=== PATIENT | female | born 1990 | race Caucasian/White ===

== ENCOUNTER 2016-06-30 09:43 | Emergency (ER) | payer BC ==
[2016-06-30 09:57] VITALS: BP 129/76; PULSE 84; TEMP 98.2; BMI 29.4
--- NOTE | 2016-06-30 11:19 | PDOC ---
History of Present Illness - General Chief Complaint: Ear Problem Stated Complaint: DIZZINESS, FATIGUE, NAUSEA Time Seen by Provider: 06/30/16 11:18 History Source: Patient Exam Limitations: No Limitations - History of Present Illness Initial Comments: CHIEF COMPLAINT: 26 y/o afebrile female with no significant PMH c/o feeling tired for the past few days. HISTORY OF PRESENT ILLNESS: She also admits to some increased pressure in her right ear and dizziness. She describes the dizziness as "just feeling like I don't have enough energy". The patient does admit her LMP was 05/21/16 and she has not taken a test. She denies f/c, n/v/d, cough, runny nose, CP, SOB, abd pain, back pain. Vital signs on arrival are within normal limits. REVIEW OF SYSTEMS: GENERAL/CONSTITUTIONAL: No fever/chills. No weakness. No weight change. + fatigue HEAD, EYES, EARS, NOSE AND THROAT: No change in vision. +right ear pressure. No sore throat. CARDIOVASCULAR: No chest pain or shortness of breath. RESPIRATORY: No cough, wheezing, or hemoptysis. GASTROINTESTINAL: No abd pain, nausea, vomiting, diarrhea. GENITOURINARY: No dysuria, frequency, or change in urination. MUSCULOSKELETAL: No joint or muscle swelling or pain. No neck or back pain. SKIN: No rash or easy bruising. NEUROLOGIC: No headache, vertigo, loss of consciousness, or loss of sensation. PHYSICAL EXAM: GENERAL: The patient is awake, alert, and fully oriented, in no acute distress. She is very well appearing, in NAD or obvious discomfort. HEAD: Normal with no signs of trauma. ENT: Pupils equal, round and reactive to light, extraocular movements intact, sclera anicteric, conjunctiva clear. b/l TMs are clear with good light reflex. B/l ear canals are normal with no erythema or edema. LUNGS: Clear to auscultation bilaterally. Normal excursion. No respiratory distress or use of accessory muscles. CV: RRR, S1/S2, no MRG. Cap refill < 2 sec. ABDOMEN: Soft, non-distended, non-tender even to deep palpation, no hepatomegaly or splenomegaly, no masses. EXTREMITIES: Normal range of motion, no edema. NEUROLOGICAL: Normal speech, normal gait. CN II-XII grossly intact. PSYCH: Normal mood, normal affect. SKIN: Warm, dry, normal turgor, no rashes or lesions noted. Past History - Past Medical History Allergies/Adverse Reactions: Allergies Allergy/AdvReac Type Severity Reaction Status Date / Time No Known Allergies Allergy Verified 06/30/16 09:57 Home Medications: Ambulatory Orders NK [No Known Home Medication] 06/30/16 Other medical history: PT DENIES MEDICAL HX - Psycho/Social/Smoking Cessation Hx Suicidal Ideation: No Smoking History: Never smoked Hx Alcohol Use: No Drug/Substance Use Hx: No *Physical Exam - Vital Signs Last Vital Signs Temp Pulse Resp BP Pulse Ox 98.2 F 84 16 129/76 98 06/30/16 09:54 06/30/16 09:54 06/30/16 09:54 06/30/16 09:54 06/30/16 09:54 Medical Decision Making - Medical Decision Making A/P: 26 y/o afebrile female with normal physical exam. Possible common cold or . Plan is as follows: 1. hcg hcg - negative Will discharge back to work with supportive care instructions. Suggested she return to the ER with any worsening or concerning symptoms. The patient verbalizes understanding of all instructions, has no further questions and is awaiting discharge. *DC/Admit/Observation/Transfer Diagnosis at time of Disposition: Earache on right Fatigue Qualifiers: Fatigue type: unspecified Qualified Code(s): R53.83 - Other fatigue - Discharge Dispostion Disposition: HOME Condition at time of disposition: Good - Referrals Referrals: Faustino Arguello [Primary Care Provider] - Call tomorrow - Patient Instructions Printed Discharge Instructions: DI for Ear Pain-Adult Additional Instructions: Discharge Instructions: -Take Motrin for pain if needed -Drink at least 64oz of water daily -Follow up with Dr. Arguello if symptoms continue -Return to the ER with any worsening or concerning symptoms
== END 2016-06-30 12:42 | disposition home or self-care (01) ==
LOC: JERFT 09:43
DX: H92.01 Otalgia, right ear (principal)
CPT/HCPCS: 84703; 99281-25

== ENCOUNTER 2018-03-28 16:41 | Emergency (ER) | payer BC ==
[2018-03-28 16:46] VITALS: BP 125/82; PULSE 92; TEMP 98.4; BMI 28.3
--- NOTE | 2018-03-28 16:47 | PDOC ---
History of Present Illness - General History Source: Patient Exam Limitations: No Limitations - History of Present Illness Initial Comments: 03/28/18 16:59 The patient is a 28 year old female, with no significant past medical history, who presents to the emergency department with, right sided facial numbness and right sided headaches. Patient notes her pain and numbness to be intermittent in nature. She describes her numbness as pins and needles and her headache as right sided radiating to her bilateral neck. She also endorses while driving to the ER she began to have right hip pain and right hand shaking, prompting her visit to the ER. She denies any recent change in strength or sensation to the extremities or change in speech. She denies a history of migraines. She denies recent fevers, chills, or dizziness. She denies recent nausea, vomit, diarrhea or constipation. She denies recent dysuria, frequency, urgency or hematuria. She denies recent chest pain or shortness of breath. Allergies: NKDA Past surgical history: None reported. Social history: Nonsmoker. Denies EtOH use and recreational drug use. <Lulu Elmore - Last Filed: 03/28/18 17:53> <Cecilia Cazares - Last Filed: 03/28/18 18:03> - General Chief Complaint: Pain Stated Complaint: RT FACE NUMB Time Seen by Provider: 03/28/18 16:46 Past History <Lulu Elmore - Last Filed: 03/28/18 17:53> - Past Medical History COPD: No - Suicide/Smoking/Psychosocial Hx Smoking History: Never smoked Have you smoked in the past 12 months: No Information on smoking cessation initiated: No Hx Alcohol Use: No Drug/Substance Use Hx: No <Cecilia Cazares - Last Filed: 03/28/18 18:03> - Past Medical History Allergies/Adverse Reactions: Allergies Allergy/AdvReac Type Severity Reaction Status Date / Time No Known Allergies Allergy Verified 03/28/18 16:42 Home Medications: Ambulatory Orders NK [No Known Home Medication] 06/30/16 Review of Systems - Review of Systems Able to Perform ROS?: Yes Comments:: 03/28/18 16:59 GENERAL/CONSTITUTIONAL: No fever or chills. No weakness. HEAD, EYES, EARS, NOSE AND THROAT: No change in vision. No ear pain or discharge. No sore throat. CARDIOVASCULAR: No chest pain or shortness of breath. RESPIRATORY: No cough, wheezing, or hemoptysis. GASTROINTESTINAL: No nausea, vomiting, diarrhea or constipation. GENITOURINARY: No dysuria, frequency, or change in urination. MUSCULOSKELETAL: No joint or muscle swelling or pain. No neck or back pain. SKIN: No rash +NEUROLOGIC: Headache. Right sided facial numbness. No vertigo or loss of consciousness. ENDOCRINE: No increased thirst. No abnormal weight change. HEMATOLOGIC/LYMPHATIC: No anemia, easy bleeding, or history of blood clots. ALLERGIC/IMMUNOLOGIC: No hives or skin allergy. All Other Systems: Reviewed and Negative <Lulu Elmore - Last Filed: 03/28/18 17:53> *Physical Exam - Vital Signs Last Vital Signs Temp Pulse Resp BP Pulse Ox 98.4 F 92 H 20 125/82 99 03/28/18 16:41 03/28/18 16:41 03/28/18 16:41 03/28/18 16:41 03/28/18 16:41 <Lulu Elmore - Last Filed: 03/28/18 17:53> - Vital Signs Last Vital Signs Temp Pulse Resp BP Pulse Ox 98.4 F 92 H 20 125/82 99 03/28/18 16:41 03/28/18 16:41 03/28/18 16:41 03/28/18 16:41 03/28/18 16:41 - Physical Exam Comments: GENERAL: Awake, alert, and fully oriented, in no acute distress HEAD: No signs of trauma EYES: PERRLA, EOMI, sclera anicteric, conjunctiva clear ENT: Auricles normal inspection, hearing grossly normal, nares patent, oropharynx clear without exudates. Moist mucosa NECK: Normal ROM, supple, no lymphadenopathy, JVD, or masses LUNGS: Breath sounds equal, clear to auscultation bilaterally. No wheezes, and no crackles HEART: Regular rate and rhythm, normal S1 and S2, no murmurs, rubs or gallops ABDOMEN: Soft, nontender, normoactive bowel sounds. No guarding, no rebound. No masses EXTREMITIES: Normal range of motion, no edema. No clubbing or cyanosis. No cords, erythema, or tenderness NEUROLOGICAL: Cranial nerves II through XII grossly intact. Normal speech, normal gait. Dec sensation to R face in V2 and V3 distribution. Motor and sensation otherwise intact. SKIN: Warm, Dry, normal turgor, no rashes or lesions noted. <Cecilia Cazares - Last Filed: 03/28/18 18:03> Moderate Sedation - Procedure Monitoring Vital Signs: Procedure Monitoring Vital Signs Temperature 98.4 F 03/28/18 16:41 Pulse Rate 92 H 03/28/18 16:41 Respiratory Rate 20 03/28/18 16:41 Blood Pressure 125/82 03/28/18 16:41 O2 Sat by Pulse Oximetry (%) 99 03/28/18 16:41 <Lulu Elmore - Last Filed: 03/28/18 17:53> - Procedure Monitoring Vital Signs: Procedure Monitoring Vital Signs Temperature 98.4 F 03/28/18 16:41 Pulse Rate 92 H 03/28/18 16:41 Respiratory Rate 20 03/28/18 16:41 Blood Pressure 125/82 03/28/18 16:41 O2 Sat by Pulse Oximetry (%) 99 03/28/18 16:41 <Cecilia Cazares - Last Filed: 03/28/18 18:03> ED Treatment Course - RADIOLOGY Radiograph Interpretation: 03/28/18 17:53 EXAM: CT head without contrast REASON FOR EXAM: Right facial numbness COMPARISON: None. FINDINGS: There is cerebral atrophy, unusual for patient's age. Mild chronic microvascular ischemic changes are noted, unusual for patient's age. No acute intracranial hemorrhage or acute infarction. The visualized aspect of the paranasal sinuses and mastoid air cells are remarkable for mild bilateral ethmoid and sphenoid chronic sinus changes. No acute fracture. One or more of the following dose reduction techniques were used: automated exposure control, adjustment of the mA and/or kV according to patient size, use of iterative reconstructive technique. Read by: Burke Tinajero MD <Lulu Elmore - Last Filed: 03/28/18 17:53> Medical Decision Making - Medical Decision Making 03/28/18 17:25 Symptoms may be due to migraine or may be due to MS or mass. Will obtain CTH to further evaluate. If wnl, will DC with neuro f/u. 03/28/18 18:02 CTH shows cortical atrophy which is unusual for age. D/w patient, as this would not correspond to such a specific symptom as R facial numbness. Recommended neuro f/u, call tomorrow to make appt. <Cecilia Cazares - Last Filed: 03/28/18 18:03> *DC/Admit/Observation/Transfer - Attestations Scribe Attestion: 03/28/18 17:00 Documentation prepared by Lulu Elmore, acting as medical records analyst for Cecilia Cazares MD. <Lulu Elmore - Last Filed: 03/28/18 17:53> - Discharge Dispostion Decision to Admit order: No <Cecilia Cazares - Last Filed: 03/28/18 18:03> Diagnosis at time of Disposition: Facial pain, Facial numbness - Discharge Dispostion Disposition: HOME Condition at time of disposition: Stable - Referrals Referrals: Raúl Alegre DO [Staff Physician] - - Patient Instructions Printed Discharge Instructions: DI for Numbness/tingling Additional Instructions: It is very important that you follow up with a neurologist. Please call tomorrow to arrange an appointment.
== END 2018-03-28 18:15 | disposition home or self-care (01) ==
LOC: FER 16:41
DX: G50.1 Atypical facial pain (principal); R20.0 Anesthesia of skin
CPT/HCPCS: 70450-TC; 84703; 99282-25

== ENCOUNTER 2018-09-21 08:21 | Emergency (ER) | payer BC | END 2018-09-21 12:35 | disposition home or self-care (01) | LOC: JER 08:21 ==

== ENCOUNTER 2019-02-19 02:00 | Inpatient (IN) | payer BC ==
[2019-02-19 03:08] VITALS: BMI 36.0
[2019-02-19 03:19] LABS: BASO % 0.2 % (0-2.0); HEMATOCRIT 32.6 % (32.4-45.2); LYMPH % 28.1 % (8-40); MCH 29.9 pg (25.7-33.7); MCHC 33.8 g/dl (32.0-36.0); MEAN CELL VOLUME 88.5 fl (80-96); MEAN PLT VOLUME 9.6 fl (7.5-11.1); MONO % 8.8 % (3.8-10.2); NEUT % 61.9 % (42.8-82.8); PLATELET COUNT 219 K/MM3 (134-434); RBC 3.68 M/mm3 (3.60-5.2); RDW 15.6 % (11.6-15.6); WHITE BLOOD COUNT 8.3 K/mm3 (4.0-10.0)
[2019-02-19 03:28] LABS: INR 0.93 (0.83-1.09)
[2019-02-19 03:30] LABS: ACTIVATED PTT 24.5 SECONDS (25.2-36.5)
[2019-02-19 03:35] LABS: BLOOD UREA NITROGEN 5.8 mg/dL (7-18); CREATININE 0.4 mg/dL (0.55-1.3); POTASSIUM 3.8 mmol/L (3.5-5.1)
[2019-02-19] MEDS ORDERED: FENTANYL/BUPIVACAINE/NS/PF - PCEA - 50 ML DISP.SYRIN EP ONE ×3 (03:57→12:24)
[2019-02-19] MEDS ORDERED: LIDO 2%/EPI 1:200000 PRESRVFRE (20 ML SDVIAL) ONE (04:05)
[2019-02-19] MEDS ORDERED: ELECTROLYTE-148 SOLN 500 ML IV ONE (05:00)
[2019-02-19] MEDS ORDERED: NALOXONE HCL 0.4 MG/ML VIAL IVPUSH PRN (05:36)
[2019-02-19] MEDS ORDERED: FENTANYL/BUPIVACAINE/NS/PF - PCEA - 50 ML DISP.SYRIN EP SCH (05:45)
[2019-02-19] MEDS ORDERED: ELECTROLYTE-148 SOLN 1,000 ML IV SCH (06:00)
[2019-02-19] MEDS ORDERED: OXYTOCIN 30 UNITS in 0.9% NS 30 UNIT/500 ML INFUS.BAG IVPB ONE (07:16)
[2019-02-19] MEDS ORDERED: OXYTOCIN 30 UNITS in 0.9% NS 30 UNIT/500 ML INFUS.BAG IVPB SCH (08:45)
--- NOTE | 2019-02-19 09:02 | HP ---
Past Medical History - Primary Care Physician PCP:: Tosin Leal - Admission Chief Complaint: 29yo P0 @ 37wks with LOF since 1am, positive contructions, no VB, positive FM History of Present Illness: 1. H/o LEEP 2. Rh neg s/p RhoGam History Source: Patient, Medical Record Limitations to Obtaining History: No Limitations - Past Medical History ...: 1 ...Para: 0 ...Term: 0 ...: 0 ...Spon : 0 ...Induced : 0 ...Multiple Gestation: 0 ...LMP: 06/05/18 ... Weeks Gestation by Dates: 37.0 ...EDC by Dates: 03/12/19 ...EDC by Sono: 03/11/19 - Past Surgical History Past Surgical History: Yes: None Hx Myomectomy: No Hx Transabdominal Cerclage: No - Smoking History Smoking history: Never smoked Have you smoked in the past 12 months: No - Alcohol/Substance Use Hx Alcohol Use: No History of Substance Use: reports: None - Social History Usual Living Arrangement: Yes: With Spouse, With Significant Other History of Recent Travel: No Home Medications - Allergies Allergies/Adverse Reactions: Allergies Allergy/AdvReac Type Severity Reaction Status Date / Time No Known Allergies Allergy Verified 03/28/18 16:42 - Home Medications Home Medications: Ambulatory Orders Pnv 29-1 Tablet 1 tab PO DAILY 02/19/19 Review of Systems - Review of Systems Constitutional: reports: No Symptoms Eyes: reports: No Symptoms HENT: reports: No Symptoms Neck: reports: No Symptoms Cardiovascular: reports: No Symptoms Respiratory: reports: No Symptoms Gastrointestinal: reports: No Symptoms Genitourinary: reports: No Symptoms Breasts: reports: No Symptoms Reported Musculoskeletal: reports: No Symptoms Integumentary: reports: No Symptoms Neurological: reports: No Symptoms Endocrine: reports: No Symptoms Hematology/Lymphatic: reports: No Symptoms Psychiatric: reports: No Symptoms Physical Exam - Maternity Vital Signs: Vital Signs Temperature 97.6 F 02/19/19 07:00 Pulse Rate 102 H 02/19/19 08:30 Respiratory Rate 18 02/19/19 08:30 Blood Pressure 127/84 02/19/19 08:30 O2 Sat by Pulse Oximetry (%) 100 02/19/19 08:30 Constitutional: Yes: Well Nourished, No Distress, Calm Eyes: Yes: WNL, Conjunctiva Clear HENT: Yes: WNL, Atraumatic, Normocephalic Neck: Yes: WNL, Supple, Trachea Midline Cardiovascular: Yes: WNL, Regular Rate and Rhythm Lungs: Clear to auscultation Breast(s): Yes: WNL - Abdominal Exam/OB Fundal Height: 38 (EFW 8lb) Number of Fetuses: Single Presentation: Vertex Contractions: Yes Regularity: Regular Intensity: Moderate Monitor Mode: External Heart Rate (range): 140 Heart Rate Location: Midline Category: II (mild varriables with good baseline verriability) Accelerations: Uniform Decelerations: Variable - Vaginal Exam/OB Vaginal Bleediing: No Speculum Exam: No Dilatation (cm): 4 Effacement (%): 80 Amniotic Membrane Status: Ruptured Nitrazine Test: Positive Amniotic Fluid: Yes: Clear Presentation: Vertex/Position Station: -3 - Physical Exam Musculoskeletal: Yes: WNL Edema: No Integumentary: Yes: WNL Deep Tendon Reflex Grade: Normal +2 ...Motor Strength: WNL Psychiatric: Yes: WNL, Alert, Oriented - Labs Lab Results: CBC, BMP 02/19/19 03:00 02/19/19 03:00 Assessment/Plan 29yo P0 @ 37wks with ROM in active labor Adequate pelvis, HR overall very reassuring Admit to L&D IFV, Labs Pain meds as requested GBS neg - no need for prophylaxis Augment with Pitocin anticipate
[2019-02-19] MEDS ORDERED: LIDOCAINE HCL 1% PRESERVATIVE FREE - 30ML VIAL ONE (11:14)
[2019-02-19] MEDS ORDERED: OXYTOCIN 20 UNITS in 0.9% NS 20 UNIT/1,000 ML INFUS.BAG IV ONE ×4 (11:14→19:00)
[2019-02-19] MEDS ORDERED: BUPIVACAINE HCL/PF 2.5 MG/ML - 30 ML VIAL IJ ONE (12:41)
[2019-02-19] MEDS ORDERED: MISOPROSTOL 100 MCG TABLET PV ONE (16:40)
[2019-02-19] MEDS ORDERED: OXYTOCIN 10 UNIT/ML 10ML MDV IM ONE (16:45)
[2019-02-19] MEDS ORDERED: METHYLERGONOVINE MALEATE 0.2 MG/1 ML AMP IM PRN (17:00)
[2019-02-19] MEDS ORDERED: D5W-LR W/ 20 UNITS OXYTOCIN 20 UNIT/1,000 ML INFUS.BAG IV SCH (17:00)
[2019-02-19] MEDS ORDERED: BENZOCAINE 28 GM HEMORRHOIDAL OINTMENT TP PRN (17:00)
[2019-02-19] MEDS ORDERED: BISACODYL 10 MG SUPP.RECT RC PRN (17:00)
[2019-02-19] MEDS ORDERED: BENZOCAINE 20% 57 GM BOTTLE TP PRN (17:00)
[2019-02-19] MEDS ORDERED: WITCH HAZEL 50% (TUCKS) 40 PAD/JAR PAD TP PRN (17:00)
--- NOTE | 2019-02-19 17:00 | PN ---
Delivery - Delivery Vaginal Delivery: No Problems Episiotomy/Laceration: Midline, 2nd degree EBL (cc): 500 Delivery, Single - Stages of Labor Date 1st Stage Initiatied: 02/19/19 Time 1st Stage Initiated: 01:15 Date 2nd Stage Initiated: 02/19/19 Time 2nd Stage Initiated: 14:00 Date of Delivery: 02/19/19 Time of Delivery: 16:25 Date Placenta Delivered: 02/19/19 Time Placenta Delivered: 16:32 Placenta: Yes: Spontaneous - Condition of Pants Maker/Burrer Marker Axle Present: No Infant Gender: Female Weight: 8 lb Position: Left, OA - 1 Minute Total Score: 9 5 Minutes Total Score: 9 - [place] Feeding Plan Initial Plan: Exclusive throughout hospitalization Benefits of Exclusively reinforced: Yes Remarks - Remarks Remarks: Prolonged pushing Intermittent maternal effort Ridkin maneuver utilized head and shoulders delivered without difficulty, aromatically Cord around the neck x 1, reduced without the problem cord, clamped and cut infant handed to the nurses Pitocin started immediately, prior to placenta delivery Placenta delivered intact Significant PPH encountered Patient received additional 10U IM Pitocin Methergine 0..2mg IM and 100mg of Cytotec per rectum Bleeding was controlled VSS
[2019-02-19] MEDS ORDERED: IBUPROFEN 600 MG TABLET (FP) PO ONE (17:26)
[2019-02-19] MEDS ORDERED: ACETAMINOPHEN 325 MG TABLET (FP) ONE (17:26)
[2019-02-19] MEDS: OXYTOCIN 20 UNITS in 0.9% NS 20 UNIT/1,000 ML INFUS.BAG IV SCH ×2 (17:30→21:29)
[2019-02-19] MEDS: IBUPROFEN 600 MG TABLET (FP) PO PRN (17:30)
[2019-02-19] MEDS: ACETAMINOPHEN 325 MG TABLET (FP) PO PRN (17:30)
[2019-02-19] MEDS: FERROUS SO4 325 MG TABLET (FP) PO SCH (21:28)
--- NOTE | 2019-02-20 07:30 | PN ---
Post Progress Note - Subjective Subjective: Patient without acute complaints. Reports tolerating oral intake without nausea or vomiting. Ambulating without dizziness. Denies fevers or chills. Pain well controlled with oral pain medication. without difficulty. Passing flatus. Post Day: 1 Type of Delivery: Vital Signs: Vital Signs Temperature 98.2 F 02/20/19 00:00 Pulse Rate 97 H 02/20/19 05:00 Respiratory Rate 18 02/20/19 05:00 Blood Pressure 113/55 L 02/20/19 05:00 O2 Sat by Pulse Oximetry (%) 100 02/19/19 16:15 Breast Exam: Yes: Soft Uterus: Yes: Fundus Firm Abdomen/GI: Yes: Abdomen soft, Tolerating PO Lochia: Yes: Rubra Lochia, amount: Small Extremities: Yes: Calves non-tender Perineum: Yes: Intact Activity: Ambulating - Labs Labs: CBC WBC 8.3 K/mm3 (4.0-10.0) 02/19/19 03:00 RBC 3.68 M/mm3 (3.60-5.2) 02/19/19 03:00 Hgb 11.0 GM/dL (10.7-15.3) 02/19/19 03:00 Hct 32.6 % (32.4-45.2) 02/19/19 03:00 MCV 88.5 fl (80-96) 02/19/19 03:00 MCH 29.9 pg (25.7-33.7) 02/19/19 03:00 MCHC 33.8 g/dl (32.0-36.0) 02/19/19 03:00 RDW 15.6 % (11.6-15.6) D 02/19/19 03:00 Plt Count 219 K/MM3 (134-434) 02/19/19 03:00 MPV 9.6 fl (7.5-11.1) D 02/19/19 03:00 Absolute Neuts (auto) 5.1 K/mm3 (1.5-8.0) 02/19/19 03:00 Neutrophils % 61.9 % (42.8-82.8) 02/19/19 03:00 Lymphocytes % 28.1 % (8-40) D 02/19/19 03:00 Monocytes % 8.8 % (3.8-10.2) 02/19/19 03:00 Eosinophils % 1.0 % (0-4.5) 02/19/19 03:00 Basophils % 0.2 % (0-2.0) 02/19/19 03:00 Nucleated RBC % 0 % (0-0) 02/19/19 03:00 Assessment/Plan 29yo P1 s/p , PPD # 1 Doing well Afebrile, VSS H/H pending Rh neg - baby Rh status pending Encourage ambulation continue routine care
[2019-02-20 08:07] LABS: BASO % 0.2 % (0-2.0); EOS % 0.6 % (0-4.5); HEMATOCRIT 23.9 % (32.4-45.2); HEMOGLOBIN 8.2 GM/dL (10.7-15.3); LYMPH % 22.7 % (8-40); MCH 30.1 pg (25.7-33.7); MCHC 34.1 g/dl (32.0-36.0); MEAN CELL VOLUME 88.3 fl (80-96); MEAN PLT VOLUME 9.3 fl (7.5-11.1); MONO % 11.9 % (3.8-10.2); NEUT % 64.6 % (42.8-82.8); PLATELET COUNT 180 K/MM3 (134-434); RBC 2.71 M/mm3 (3.60-5.2); RDW 15.6 % (11.6-15.6); WHITE BLOOD COUNT 14.1 K/mm3 (4.0-10.0)
[2019-02-20] MEDS: ACETAMINOPHEN 325 MG TABLET (FP) PO PRN ×2 (09:19→20:16)
[2019-02-20] MEDS: FERROUS SO4 325 MG TABLET (FP) PO SCH ×2 (09:20→21:41)
[2019-02-20] MEDS: IBUPROFEN 600 MG TABLET (FP) PO PRN ×2 (09:20→20:15)
[2019-02-20] MEDS: PRENATAL VITAMINS W/ FOLIC ACID TABLET (FP) PO SCH (09:20)
[2019-02-20] MEDS ORDERED: FLU VACC QS2019-20(6MOS UP)/PF 60 MCG/0.5 ML SYRINGE IM ONE (10:00)
[2019-02-20] MEDS ORDERED: FLU VACCINE QUAD 60 MCG/0.5 ML (MDV 19-20) IM ONE (10:00)
[2019-02-20] MEDS ORDERED: SENNOSIDES/DOCUSATE COMBO (SENNA PLUS) TABLET (UD) PO PRN (22:00)
[2019-02-21 07:50] VITALS: BP 114/60; PULSE 82; TEMP 97.7
[2019-02-21 08:34] LABS: BASO % 0.4 % (0-2.0); EOS % 1.5 % (0-4.5); HEMATOCRIT 23.3 % (32.4-45.2); HEMOGLOBIN 7.9 GM/dL (10.7-15.3); LYMPH % 28.1 % (8-40); MCH 29.9 pg (25.7-33.7); MEAN PLT VOLUME 9.6 fl (7.5-11.1); PLATELET COUNT 187 K/MM3 (134-434); RBC 2.65 M/mm3 (3.60-5.2); RDW 16.2 % (11.6-15.6); WHITE BLOOD COUNT 12.2 K/mm3 (4.0-10.0)
[2019-02-21] MEDS: PRENATAL VITAMINS W/ FOLIC ACID TABLET (FP) PO SCH (09:08)
[2019-02-21] MEDS: FERROUS SO4 325 MG TABLET (FP) PO SCH (09:08)
--- NOTE | 2019-02-21 10:35 | DS ---
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 Vital Signs: Vital Signs Temperature 97.7 F 02/21/19 07:15 Pulse Rate 82 02/21/19 07:15 Respiratory Rate 20 02/21/19 07:15 Blood Pressure 114/60 02/21/19 07:15 O2 Sat by Pulse Oximetry (%) 100 02/19/19 16:15 Constitutional: Yes: Well Nourished, No Distress, Calm Eyes: Yes: WNL, Conjunctiva Clear HENT: Yes: WNL, Atraumatic, Normocephalic Neck: Yes: WNL, Supple, Trachea Midline Cardiovascular: Yes: WNL, Regular Rate and Rhythm Respiratory: Yes: WNL, Regular, CTA Bilaterally Gastrointestinal: Yes: WNL, Normal Bowel Sounds, Soft Labs: CBC, BMP 02/21/19 07:00 02/19/19 03:00 Delivery - Delivery Vaginal Delivery: No Problems Type of Anesthesia: Local, Epidural Episiotomy/Laceration: Midline, 2nd degree EBL (cc): 500 Delivery, Single - Stages of Labor Date 1st Stage Initiatied: 02/19/19 Time 1st Stage Initiated: 01:15 Date 2nd Stage Initiated: 02/19/19 Time 2nd Stage Initiated: 14:00 Date of Delivery: 02/19/19 Time of Delivery: 16:25 Time Placenta Delivered: 16:32 Placenta: Yes: Spontaneous - Condition of Infant Montessori Lead Teacher/Hose Cementer Present: No Infant Gender: Female Weight: 8 lb Position: Left, OA Total Hours ROM (Hrs/Mins): 15hrs 2min - 1 Minute Total Score: 9 5 Minutes Total Score: 9 - Feeding Plan Initial Plan: Exclusive throughout hospitalization Benefits of Exclusively reinforced: Yes Discharge Summary Reason For Visit: LABOR Procedures: Principal: Normal vaginal delivery Hospital Course: unremarkable Condition: Good - Instructions Diet, Activity, Other Instructions: Physical activity Resume your normal everyday activity as tolerated no heavy lifting or exercise until seen by your surgeon. You may walk unlimited des of and climb stairs. You may resume driving the car when you feel safe and comfortable behind the wheel. No sexual activity as instructed. Wound care If you have a bandage, leave it on, and keep dry for 48-72 hours. After that time discard the outer bandage. If they are tapes on the skin under the out of bandage leave them in place. They will peel off in the next 7 to 10 days. Do Not Peel them off. You may shower the day after surgery. If there are tapes present on the skin, you may shower over them. Diet There are no dietary restrictions. Eat healthy, high-fiber foods. Drink 6 to 8 glasses of liquid each day. This will assist in keeping your bowels are regular. Pain management You may take Tylenol or acetaminophen or Ibuprofen (for example, Motrin, Advil etc.) from my pain prescription medication is ordered should be taken as prescribed for moderate to severe pain. Call MD for any of the following: Severe pain not relieved by medication Fever of 101 or higher Excessive bleeding or drainage on dressing Inability to urinate Disposition: HOME - Home Medications Comprehensive Discharge Medication List: Ambulatory Orders Pnv 29-1 Tablet 1 tab PO DAILY 02/19/19 Prescription Drug Monitoring Program (I-STOP) results: I-STOP reviewed and no issues identified
[2019-02-21] MEDS: IBUPROFEN 600 MG TABLET (FP) PO PRN (15:17)
[2019-02-21] MEDS: ACETAMINOPHEN 325 MG TABLET (FP) PO PRN (15:18)
[2019-02-22 11:29] LABS: POC NITRAZINE POS
== END 2019-02-21 17:30 | disposition home or self-care (01) | DRG 807 ==
LOC: JLDR 02:00 → J3W 19:55
PROVIDERS: ADMIT Obstetrics & Gynecology; ATTEND Obstetrics & Gynecology
PROC: 0KQM0ZZ Repair Perineum Muscle, Open Approach (ICD-10-PCS; principal; 2019-02-19)
PROC: 10E0XZZ Delivery of Products of Conception, External Approach (ICD-10-PCS; 2019-02-19)
DX: O70.1 Second degree perineal laceration during delivery (principal); Z37.0 Single live birth; O69.81X0 Labor and delivery complicated by cord around neck, without compression, not applicable or unspecified; Z3A.37 37 weeks gestation of pregnancy
CPT/HCPCS: 36415; 36600; 59409; 80048; 82803; 83986-QW; 85025; 85461; 85610; 85730; 86593; 86850; 86870; 86880; 86900; 86901; 86902; 86999; 87389; 90686; 93970-TC

== ENCOUNTER 2019-10-22 08:01 | Emergency (ER) | payer OTHER, BC ==
[2019-10-22 08:06] VITALS: BP 111/67; PULSE 83; TEMP 98.3; BMI 30.4
--- NOTE | 2019-10-22 08:22 | PDOC ---
History of Present Illness - General Chief Complaint: Injury Stated Complaint: FINGER INJURED Time Seen by Provider: 10/22/19 08:04 History Source: Patient Exam Limitations: No Limitations - History of Present Illness Initial Comments: 10/22/19 08:13 29 yo female no sig medical hx presents to the ED with left thumb pain. Pt states while working at [employer] yesterday she got her finger stuck in a door jam, quickly removed it and iced the finger. Pt reports sudden onset pain and swelling with full motor function of the affected thumb however, pt noted further swelling and pain this am with reduced thumb flexion due to swelling. Pt also notes some mild numbness to tip of the thumb. Pt denies tenderness to snuff box, tenderness to wrist or proximal forearm, open wound, bruising, hematoma. Past History - Medical History Allergies/Adverse Reactions: Allergies Allergy/AdvReac Type Severity Reaction Status Date / Time No Known Allergies Allergy Verified 03/28/18 16:42 Home Medications: Ambulatory Orders Pnv 29-1 Tablet 1 tab PO DAILY 02/19/19 Ibuprofen [Motrin -] 600 mg PO QID #28 tablet 02/21/19 Asthma: No Cancer: No Cardiac Disorders: No COPD: No Diabetes: No HTN: No Seizures: No Thyroid Disease: No - Immunization History Immunization Up to Date: No - Psycho-Social/Smoking History Smoking History: Never smoked Have you smoked in the past 12 months: No - Substance Abuse Hx (Audit-C & DAST Scrn) How often the patient has a drink containing alcohol: Never Score: In Men: 4 or > Positive; In Women: 3 or > Positive: 0 Screen Result (Pos requires Nsg. Audit-10AR): Negative Review of Systems - Review of Systems Musculoskeletal: Yes: Symptoms Reported Integumentary: Yes: Symptoms Reported Neurological: Yes: Symptoms reported *Physical Exam - Vital Signs Last Vital Signs Temp Pulse Resp BP Pulse Ox 98.3 F 83 18 111/67 99 10/22/19 08:03 10/22/19 08:03 10/22/19 08:03 10/22/19 08:03 10/22/19 08:03 - Physical Exam General Appearance: Yes: Nourished, Appropriately Dressed. No: Apparent Distress HEENT: positive: EOMI Respiratory/Chest: positive: Lungs Clear Cardiovascular: positive: Regular Rhythm, Regular Rate Comments:: 10/22/19 08:22 equal bilateral radial pulses 2+ ED Treatment Course - RADIOLOGY Radiology Studies Ordered: Category Date Time Status HAND- LEFT [RAD] Stat Radiology 10/22/19 08:12 Ordered Medical Decision Making - Medical Decision Making 10/22/19 09:07 29 yo female no sig medical hx presents to the ED with left thumb pain. Pt states while working at [employer] yesterday she got her finger stuck in a door jam, quickly removed it and iced the finger. Pt reports sudden onset pain and swelling with full motor function of the affected thumb however, pt noted further swelling and pain this am with reduced thumb flexion due to swelling. Pt also notes some mild numbness to tip of the thumb. Pt denies tenderness to snuff box, tenderness to wrist or proximal forearm, open wound, bruising, hematoma. vitals stable radial pulses equal bilaterally, cap refill in thumb less than 2 seconds, strength 5/5 Discharge - Discharge Information Problems reviewed: Yes Clinical Impression/Diagnosis: Thumb injury Disposition: HOME - Admission No - Follow up/Referral Referrals: Camacho Leblanc MD [Primary Care Provider] - Bill Mckeon MD [Staff Physician] - - Patient Discharge Instructions Additional Instructions: Please see your Primary Doctor within 48 hours. Follow uyp the the Hand Surgeon referred to you within 48 hours. Use the thumb splint for comfort. Use over the counter Tylenol for pain control. Thank you - Post Discharge Activity
--- NOTE | 2019-10-22 08:35 | PDOC ---
Attending Attestation - Resident Resident Name: Rell Kruse - ED Attending Attestation I have performed the following: I have examined & evaluated the patient, The case was reviewed & discussed with the resident, I agree w/resident's findings & plan, Exceptions are as noted - HPI HPI: 10/22/19 08:31 29 F with no PMH presents with L thumb pain and swelling. Pt states she got finger stuck in a door jam yesterday. Denies any other injuries. - Physicial Exam PE: 10/22/19 08:32 See resident exam - Medical Decision Making 10/22/19 08:32 29 F with L thumb injury. Low suspicion for tendon injury, as ROM is intact. - XR negative for fx - Finger splint - F/u hand Pt is well appearing, with normal vitals. Clinically stable for DC at this time. I discussed the physical exam findings, ancillary test results and final diagnoses with the patient. I answered all of the patient's questions. The patient was satisfied with the care received and felt comfortable with the discharge plan and treatment plan. The patient agrees to follow up with the primary care physician within 24-72 hours. Please note this patient was evaluated during the COVID-19 crisis with the presidential [place] Act Declaration and the [place] governor executive order number 202. He/she was evaluated and clinical decisions were made relative to healthcare system resources as well as clinical picture during a pandemic crisis situation. Discharge - Discharge Information Problems reviewed: Yes Clinical Impression/Diagnosis: Thumb injury, Finger swelling, Finger sprain Disposition: HOME - Follow up/Referral Referrals: Camacho Leblanc MD [Primary Care Provider] - Bill Mckeon MD [Staff Physician] - - Patient Discharge Instructions Additional Instructions: Please see your Primary Doctor within 48 hours. Follow uyp the the Hand Surgeon referred to you within 48 hours. Use the thumb splint for comfort. Use over the counter Tylenol for pain control. Thank you - Post Discharge Activity
== END 2019-10-22 09:08 | disposition home or self-care (01) ==
LOC: JER 08:01
DX: S69.92XA Unspecified injury of left wrist, hand and finger(s), initial encounter (principal); W23.0XXA Caught, crushed, jammed, or pinched between moving objects, initial encounter
CPT/HCPCS: 73130-TC-LT-FY; 99283-25

== ENCOUNTER 2020-01-24 08:21 | Emergency (ER) | payer BC, OTHER ==
[2020-01-24 08:32] VITALS: BP 120/74; PULSE 86; TEMP 98.5; BMI 30.4
[2020-01-24] MEDS ORDERED: IBUPROFEN 600 MG TABLET (FP) PO ONE ×2 (08:43→08:54)
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
--- OUTSIDE RECORDS SUMMARY | 2020-01-24 09:10 | XMS ---
:1990 Author Organization [facility] Support Name Relationship Address Phone [facility] Unavailable [address] [place] [address] [facility] Unavailable [address] [place] [address] GEMA RYAN [address] [phone] [place] [address] GEMA RYAN Spouse [address] [place] [address] Re-disclosure Warning The records that you are about to access may contain information from federally- assisted alcohol or drug abuse programs. If such information is present, then the following federally mandated warning applies: This information has been disclosed to you from records protected by federal confidentiality rules (42 CFR part 2). The federal rules prohibit you from making any further disclosure of this information unless further disclosure is expressly permitted by the written consent of the person to whom it pertains or as otherwise permitted by 42 CFR part 2. A general authorization for the release of medical or other information is NOT sufficient for this purpose. The Federal rules restrict any use of the information to criminally investigate or prosecute any alcohol or drug abuse patient.The records that you are about to access may contain highly sensitive health information, the redisclosure of which is protected by Article 27-F of the [facility] Public Health law. If you continue you may haveaccess to information: Regarding HIV / AIDS; Provided by facilities licensed or operated by the [facility] Office of Mental Health; or Provided by the [facility] Office for People With Developmental Disabilities. If such information is present, then the following [facility] mandated warning applies: This information has been disclosed to you from confidential records which are protected by state law. State law prohibits you from making any further disclosure of this information without the specific written consent of the person to whom it pertains, or as otherwise permitted by law. Any unauthorized further disclosure in violation of state law may result in a fine or chcf sentence or both. A general authorization for the release of medical or other information is NOT sufficient authorization for further disclosure. Insurance Providers Payer name Policy type Policy ID Covered Covered libertarian's Policy P rasheeda / Coverage libertarian ID relationship to Mishra Inf ormation type mishra PENDING [id number] SP [id number] WC/NF ONLY BC EPO [id number] SP [id number] HOSP. [id number] SP [id number] EMPLOYEE JOB RELATED INJ BC EPO [id number] SP [id number] BC EPO [id number] SP [id number] Results ID Date Data Source [id number] 08/31/2019 12:00:00 AM EDT [facility] Name Value Range Interpretation Code Description Data Whitney rce(s) Supporting Document(s ) 2019-nCoV [facility] RNA XXX JASE+probe- Imp This lab was ordered by [facility]-Andrew GARCIA and reported by [employer] Procedure
== END 2020-01-24 09:02 | disposition home or self-care (01) ==
LOC: JERFT 08:21
DX: M54.5 Low back pain (principal)
CPT/HCPCS: 99283-25

== ENCOUNTER 2020-08-20 08:52 | Emergency (ER) | payer OTHER, BC ==
[2020-08-20 08:56] VITALS: BP 109/72; PULSE 80; TEMP 98.9; BMI 30.4
[2020-08-20] MEDS ORDERED: IBUPROFEN 600 MG TABLET (FP) PO ONE ×2 (09:16→09:19)
== END 2020-08-20 09:25 | disposition home or self-care (01) ==
LOC: JERFT 08:52
DX: S63.502A Unspecified sprain of left wrist, initial encounter (principal)
CPT/HCPCS: 99283-25